=== PATIENT | female | born 1975 | race Caucasian/White ===

== ENCOUNTER 2025-06-29 06:43 | Day surgery (SDC) | payer OTHER, SELFPAY ==
[2025-06-29 07:16] VITALS: BP 142/98; PULSE 83; RESP 18; TEMP 36.1; O2SAT 96; BMI 37.3
--- NOTE | 2025-06-29 07:50 | P.ANESASSM_ITS ---
Pre-Anesthetic Assessment Height/Weight: Height 1.65 m Weight 101.605 kg Temp Pulse Resp BP Pulse Ox O2 Del Method 97.0 F L 83 18 142/98 96 Room Air 06/29/25 07:16 06/29/25 07:16 06/29/25 07:16 06/29/25 07:16 06/29/25 07:16 06/29/25 07:16 Operation Date: 06/29/25 08:30 Proposed Procedures p EGD EGD with Biopsy [id number] [id number] R12 Z12.11(Not Applicable) - Aníbal Hancock MD s Colonoscopy(Not Applicable) - Aníbal Hancock MD Familial anesthetic complications: none Was Beta Afsaneh taken within 24 hours: N/A Was Clonidine taken within 24 hours: N/A Last intake: Intake Last Liquid Date 06/28/25 Last Liquid Time 22:00 Last Solid Date 06/27/25 Last Solid Time 18:00 Social Alcohol (occasional) and Tobacco (1ppd,MJ) Exam alert and oriented x 3 Airway Submandibular: within normal limits Cervical ROM: within normal limits Mallampati: Class I Dentition: false Pulmonary Asthma CV/HEM None reported None reported Hepatic None reported GI None reported Metabolic Morbid Obesity [facility] None reported Neuropsych Anxiety Anesthetic Plan ASA status: 2 Anesthesia: Anesthesia Evaluation and MAC Risk of > 500 ml blood loss (7ml/kg in children): No Medications/Allergies Home Medications ?Medication ?Instructions ?Recorded ?Confirmed ?Last Taken ?Type aspirin 325 mg tablet 325 mg PO BID PRN Pain 06/2406/28/25 06/14/25 History lactobacillus combination no.9 4 4,000 mmu cells PO DA DEAN 06/24/25 06/28/25 06/14/25 History billion cell capsule (Adult 50 Plus Probiotic) ondansetron 4 mg disintegrating 4 mg PO Q8H PRN Nausea And Vomiting 06/28/25 06/28/25 Unknown History tablet Allergies Allergy/AdvReac Type Severity Reaction Status Date / Time No Known Allergies Allergy Unverified 06/24/25 09:17 Current Medications Generic Name Dose Route Start Last Admin Trade Name Freq PRN Reason Stop Dose Admin Sodium Chloride 1,000 mls @ 15 mls/hr 06/29/25 07:15 06/29/25 07:20 Sodium Chloride 0.9% IV 06/30/25 07:14 15 mls/hr .Q24H PRN Administration COLONOSCOPY FLUIDS PFSH Anesthesia Family History (Updated 06/24/25 @ 09:[address]) Family/Other Stroke Diabetes Cancer thyroid Social History Smoking and tobacco/nicotine status: current every day tobacco/nicotine user
--- NOTE | 2025-06-29 08:29 | W.PM.OPSUD ---
Surgery/Procedure H&P Update DATE OF PROCEDURE: June 29, 2025 DATE H&P PERFORMED: 06/24/25 H&P UPDATE INFORMATION: I have reviewed H&P completed within last 30 days, I have examined patient prior to procedure, No changes to prior documentation and Risks and benefits of the procedure reviewed PLANNED PROCEDURE: Operation Date: 06/29/25 08:30 Proposed Procedures p EGD EGD with Biopsy [id number] G0105 R12 Z12.11(Not Applicable) - Aníbal Hancock MD s Colonoscopy(Not Applicable) - Aníbal Hancock MD
[2025-06-29 09:07] VITALS: BP 138/87; PULSE 83; RESP 18; TEMP 36.1; O2SAT 90
[2025-06-29 09:19] VITALS: BP 118/70; PULSE 86; RESP 18; O2SAT 91
--- NOTE | 2025-06-29 09:35 | ANE.PACU2 ---
Inpatient post-anesthesia follow up: Airway intact: Yes Vital signs: Temperature 97.0 F Pulse Rate 86 Respiratory Rate 18 Blood Pressure 118/70 Pulse Oximetry 91 Oxygen Delivery Me thod Room Air Oxygen Flow Rate 2 Fraction of Inspir ed Oxygen Hydration adequate: Yes Nausea and vomiting: No Pain level: 1 Mental status: Baseline
== END 2025-06-29 09:35 | disposition home or self-care (01) ==
PROVIDERS: PCP Family Medicine; Visit Provider Student in an Organized Health Care Education/Training Program
PROC: 0DJ08ZZ Inspection of Upper Intestinal Tract, Via Natural or Artificial Opening Endoscopic (ICD-10-PCS; principal; 2025-06-29 08:30)
PROC: 0DJD8ZZ Inspection of Lower Intestinal Tract, Via Natural or Artificial Opening Endoscopic (ICD-10-PCS; CPT 45378; 2025-06-29 08:30)
DX: Z12.11 Encounter for screening for malignant neoplasm of colon (principal); K57.30 Diverticulosis of large intestine without perforation or abscess without bleeding; K52.9 Noninfective gastroenteritis and colitis, unspecified; R12 Heartburn; K29.80 Duodenitis without bleeding; K29.50 Unspecified chronic gastritis without bleeding; E66.01 Morbid (severe) obesity due to excess calories; Z68.37 Body mass index [BMI] 37.0-37.9, adult; F41.9 Anxiety disorder, unspecified; Z79.82 Long term (current) use of aspirin; F17.200 Nicotine dependence, unspecified, uncomplicated
CPT/HCPCS: 43239; 45380; 88305; 88342; J2704; J3010; J7030

== ENCOUNTER → 2025-07-02 08:58 | Outpatient (BNVA) | payer OTHER, SELFPAY | PROVIDERS: PCP Family Medicine; Visit Provider Orthopaedic Surgery | DX: M25.551 Pain in right hip (principal); M25.552 Pain in left hip; M16.0 Bilateral primary osteoarthritis of hip | CPT/HCPCS: 73523 ==

== ENCOUNTER 2025-07-14 06:57 | Outpatient (RCR) | payer OTHER, SELFPAY | END 2025-08-11 23:59 | disposition home or self-care (01) | LOC: SPT 06:57 | PROVIDERS: PCP Family Medicine; Visit Provider Orthopaedic Surgery | DX: M25.551 Pain in right hip (principal); M25.552 Pain in left hip | CPT/HCPCS: 97110; 97161; 97530 ==